=== PATIENT | female | born 1985 | race African-American/Black ===

== ENCOUNTER 2017-09-12 11:26 | Inpatient (IN) | payer OTHER ==
[2017-09-12] MEDS ORDERED: DEXTROSE 5%-LACTATED RINGERS 1,000 ML IV SCH (12:15)
[2017-09-12 12:38] LABS: BASO % 0.6 % (0-2.0); EOS % 1.3 % (0-4.5); HEMATOCRIT 30.2 % (32.4-45.2); HEMOGLOBIN 9.9 GM/dL (10.7-15.3); LYMPH % 22.3 % (8-40); MCH 28.6 pg (25.7-33.7); MCHC 32.8 g/dl (32.0-36.0); MEAN CELL VOLUME 87.4 fl (80-96); MEAN PLT VOLUME 7.7 fl (7.5-11.1); MONO % 7.6 % (3.8-10.2); NEUT % 68.2 % (42.8-82.8); PLATELET COUNT 233 K/MM3 (134-434); RBC 3.45 M/mm3 (3.60-5.2); RDW 13.1 % (11.6-15.6); WHITE BLOOD COUNT 10.1 K/mm3 (4.0-10.0)
[2017-09-12] MEDS ORDERED: AMPICILLIN SODIUM 2 GM VIAL ONE (12:45)
[2017-09-12] MEDS ORDERED: AMPICILLIN - 2 GM in SODIUM CHLORIDE 100 ML IVPB ONE (12:50)
[2017-09-12 12:59] VITALS: BMI 25.8
[2017-09-12 12:59] LABS: INR 0.96 (0.82-1.09); PROTHROMBIN TIME (PATIENT) 10.8 SEC (9.7-13.0)
[2017-09-12 13:02] LABS: ACTIVATED PTT 29.1 SECONDS (26.9-34.4)
[2017-09-12 13:07] LABS: ANION GAP 5 (8-16); BLOOD UREA NITROGEN 9 mg/dL (7-18); CALCIUM 8.3 mg/dL (8.5-10.1); CHLORIDE 109 mmol/L (98-107); CO2 26 mmol/L (21-32); CREATININE 0.5 mg/dL (0.55-1.02); GLUCOSE,RANDOM 75 mg/dL (74-106); POTASSIUM 4.1 mmol/L (3.5-5.1); SODIUM 140 mmol/L (136-145)
[2017-09-12] MEDS ORDERED: FENTANYL/BUPIVACAINE/NS/PF - PCEA - 50 ML DISP.SYRIN EP ONE (13:26)
[2017-09-12] MEDS ORDERED: TUBERCULIN PPD 5 TU/0.1ML SYRINGE (IN PATIENT USE ONLY) ID ONE (13:30)
--- NOTE | 2017-09-12 13:35 | HP ---
Past Medical History - Primary Care Physician PCP:: Anderson Hogue - Admission Chief Complaint: 38 weeks, labor History of Present Illness: 32 yo f edc 09/23/17 , care else where c/o contraction, no rom, no bleeding , cx 5 cm 80 vx -2 mi, fhr cat 1, irregular contraction , no chart available History Source: Patient Limitations to Obtaining History: No Limitations - Past Medical History ...: 4 ...Para: 1 ...Term: 1 ...: 0 ...Spon : 0 ...Induced : 2 ...Multiple Gestation: 0 ...LMP: 12/19/16 ... Weeks Gestation by Dates: 38.1 ...EDC by Dates: 09/25/17 ...EDC by Sono: 09/23/17 Heme/Onc: Yes: Anemia - Past Surgical History Hx Myomectomy: No Hx Transabdominal Cerclage: No - Smoking History Smoking history: Never smoked Have you smoked in the past 12 months: No - Alcohol/Substance Use Hx Alcohol Use: No - Social History Usual Living Arrangement: Yes: With Spouse History of Recent Travel: No Home Medications - Allergies Allergies/Adverse Reactions: Allergies Allergy/AdvReac Type Severity Reaction Status Date / Time No Known Allergies Allergy Verified 09/12/17 13:01 - Home Medications Home Medications: Ambulatory Orders Pnv No.95/Ferrous Fum/Folic AC [ Vitamin Tablet] 1 each PO DAILY Review of Systems - Review of Systems Constitutional: reports: No Symptoms Eyes: reports: No Symptoms HENT: reports: No Symptoms Neck: reports: No Symptoms Cardiovascular: reports: No Symptoms Respiratory: reports: No Symptoms Gastrointestinal: reports: No Symptoms Genitourinary: reports: No Symptoms Breasts: reports: No Symptoms Reported Musculoskeletal: reports: No Symptoms Integumentary: reports: No Symptoms Neurological: reports: No Symptoms Endocrine: reports: No Symptoms Hematology/Lymphatic: reports: No Symptoms Psychiatric: reports: No Symptoms Physical Exam - Maternity Vital Signs: Vital Signs Temperature 97.3 F L 09/12/17 12:30 Pulse Rate 67 09/12/17 12:30 Respiratory Rate 20 09/12/17 12:30 Blood Pressure 131/74 09/12/17 12:30 O2 Sat by Pulse Oximetry (%) - Labs Lab Results: CBC, BMP 09/12/17 12:16 09/12/17 12:16 Hemorrhage Risk Assessment - Risk Factors High Risk Factors: Yes: None Risk Score: 0 Risk Level: Low Risk Problem List - Problems (1) with 38 completed weeks gestation Code(s): Z3A.38 - 38 WEEKS GESTATION OF (2) Labor established Code(s): GRZ8050 - Assessment/Plan admit for vaginal delivery, FHM
[2017-09-12] MEDS ORDERED: ELECTROLYTE-148 SOLN 500 ML IV SCH (13:40)
[2017-09-12] MEDS ORDERED: BUPIVACAINE HCL/PF 0.25% (2.5MG/ML) 10 ML VIAL ONE (13:41)
[2017-09-12] MEDS ORDERED: LIDO 2%/EPI 1:200000 PRESRVFRE (20 ML SDVIAL) ONE (13:41)
[2017-09-12] MEDS ORDERED: NALOXONE HCL 0.4 MG/ML VIAL IVPUSH PRN (14:08)
[2017-09-12] MEDS ORDERED: FENTANYL/BUPIVACAINE/NS/PF - PCEA - 50 ML DISP.SYRIN EP SCH (14:15)
[2017-09-12] MEDS ORDERED: OXYTOCIN 30 UNITS in 0.9% NS 30 UNIT/500 ML INFUS.BAG IVPB ONE (14:27)
[2017-09-12] MEDS ORDERED: ELECTROLYTE-148 SOLN 1,000 ML IV SCH (14:40)
--- NOTE | 2017-09-12 14:54 | PN ---
Progress Note (short form) - Note Progress Note: cx 8 cm, 100 vx 0 arom, light mec, fhr cat 1. irregular contraction Problem List - Problems (1) with 38 completed weeks gestation Code(s): Z3A.38 - 38 WEEKS GESTATION OF (2) Labor established Code(s): HUU4162 -
[2017-09-12] MEDS ORDERED: OXYTOCIN 30 UNITS in 0.9% NS 30 UNIT/500 ML INFUS.BAG IVPB SCH (15:00)
[2017-09-12 15:29] LABS: URINE APPEARANCE CLEAR; URINE BILIRUBIN NEGATIVE (<2.0 mg/dL); URINE COLOR YELLOW; URINE GLUCOSE (UA) NEGATIVE (NEGATIVE); URINE KETONE NEGATIVE (NEGATIVE); URINE LEUK ESTERASE NEGATIVE (NEGATIVE); URINE NITRITE NEGATIVE (NEGATIVE); URINE PROTEIN NEGATIVE (NEGATIVE)
[2017-09-12 16:02] LABS: COCAINE, UR NEGATIVE ng/ml (CUTOFF=300); METHADONE, UR NEGATIVE ng/ml (CUTOFF=300); OPIATES, URI NEGATIVE ng/ml (CUTOFF=300); PHENCYCLIDINE,URINE NEGATIVE ng/ml (CUTOFF=25); URINE AMPHETAMINES NEGATIVE ng/ml (CUTOFF=500); URINE BARBITURATES NEGATIVE ng/ml (CUTOFF=200); URINE BENZODIAZEPINES NEGATIVE ng/ml (CUTOFF=200)
[2017-09-12] MEDS ORDERED: OXYTOCIN 20 UNITS in 0.9% NS 20 UNIT/1,000 ML INFUS.BAG IV ONE (16:39)
[2017-09-12] MEDS ORDERED: BISACODYL 10 MG SUPP.RECT RC PRN (16:55)
[2017-09-12] MEDS ORDERED: WITCH HAZEL 50% (TUCKS) 40 PAD/JAR PAD TP PRN (16:55)
[2017-09-12] MEDS ORDERED: BENZOCAINE 28 GM HEMORRHOIDAL OINTMENT TP PRN (16:55)
[2017-09-12] MEDS ORDERED: IBUPROFEN 600 MG TABLET (FP) PO PRN (16:55)
[2017-09-12] MEDS: AMPICILLIN - 1 GM in SODIUM CHLORIDE 100 ML IVPB SCH ×2 (17:00→22:12)
[2017-09-12] MEDS ORDERED: OXYTOCIN 20 UNITS in 0.9% NS 20 UNIT/1,000 ML INFUS.BAG IV SCH (17:00)
[2017-09-12 17:07] LABS: ALBUMIN 2.9 g/dl (3.4-5.0); ALK PHOS 125 U/L (45-117); ANION GAP 7 (8-16); BILIRUBIN,TOTAL 0.5 mg/dL (0.2-1.0); BLOOD UREA NITROGEN 8 mg/dL (7-18); CALCIUM 7.9 mg/dL (8.5-10.1); CHLORIDE 108 mmol/L (98-107); CO2 25 mmol/L (21-32); CREATININE 0.5 mg/dL (0.55-1.02); GLUCOSE,RANDOM 67 mg/dL (74-106); POTASSIUM 3.9 mmol/L (3.5-5.1); SGOT/AST 14 U/L (15-37); SGPT/ALT 15 U/L (12-78); SODIUM 140 mmol/L (136-145); TOT PROT 6.6 g/dl (6.4-8.2)
[2017-09-12] MEDS ORDERED: ACETAMINOPHEN 325 MG TABLET (FP) PO PRN (17:11)
[2017-09-12] MEDS ORDERED: BENZOCAINE 20% 57 GM BOTTLE TP PRN (17:11)
[2017-09-12] MEDS ORDERED: METHYLERGONOVINE MALEATE 0.2 MG/1 ML AMP IM PRN (17:15)
[2017-09-12 17:29] LABS: VENOUS PC02 43.4 mmHg (38-52); VENOUS PH 7.35 (7.32-7.42); VENOUS PO2 40.9 mmHg (28-48)
[2017-09-13] MEDS: AMPICILLIN - 1 GM in SODIUM CHLORIDE 100 ML IVPB SCH (06:50)
--- NOTE | 2017-09-13 06:52 | PN ---
Post Progress Note - Subjective Subjective: no complains Post Day: 1 Type of Delivery: Vital Signs: Vital Signs Temperature 99.0 F 09/13/17 00:00 Pulse Rate 89 09/13/17 00:00 Respiratory Rate 20 09/13/17 00:00 Blood Pressure 115/78 09/13/17 00:00 O2 Sat by Pulse Oximetry (%) 100 09/12/17 17:45 Breast Exam: Yes: Soft, Other (bottle feeding ). No: Engorged Uterus: Yes: Fundus Firm, Fundus below umbilicus, Non-tender Lochia, amount: Moderate Extremities: Yes: Calves non-tender Perineum: Yes: Intact Activity: Ambulating - Labs Labs: CBC WBC 10.1 K/mm3 (4.0-10.0) H 09/12/17 12:16 RBC 3.45 M/mm3 (3.60-5.2) L 09/12/17 12:16 Hgb 9.9 GM/dL (10.7-15.3) L 09/12/17 12:16 Hct 30.2 % (32.4-45.2) L 09/12/17 12:16 MCV 87.4 fl (80-96) 09/12/17 12:16 MCH 28.6 pg (25.7-33.7) 09/12/17 12:16 MCHC 32.8 g/dl (32.0-36.0) 09/12/17 12:16 RDW 13.1 % (11.6-15.6) 09/12/17 12:16 Plt Count 233 K/MM3 (134-434) 09/12/17 12:16 MPV 7.7 fl (7.5-11.1) 09/12/17 12:16 Neutrophils % 68.2 % (42.8-82.8) 09/12/17 12:16 Lymphocytes % 22.3 % (8-40) 09/12/17 12:16 Monocytes % 7.6 % (3.8-10.2) 09/12/17 12:16 Eosinophils % 1.3 % (0-4.5) 09/12/17 12:16 Basophils % 0.6 % (0-2.0) 09/12/17 12:16 Nucleated RBC % 0 % (0-0) 09/12/17 12:16 Problem List - Problems (1) Encounter for routine follow-up Code(s): Z39.2 - ENCOUNTER FOR ROUTINE FOLLOW-UP (2) Normal vaginal delivery Code(s): O80 - ENCOUNTER FOR FULL-TERM UNCOMPLICATED DELIVERY Assessment/Plan anemia Plan pp cbc today . discharge tomorrow.
[2017-09-13] MEDS: FERROUS SO4 325 MG TABLET (FP) PO SCH ×2 (08:54→18:39)
[2017-09-13 09:37] LABS: BASO % 0.2 % (0-2.0); EOS % 1.6 % (0-4.5); HEMATOCRIT 25.5 % (32.4-45.2); HEMOGLOBIN 8.4 GM/dL (10.7-15.3); LYMPH % 17.2 % (8-40); MCH 28.4 pg (25.7-33.7); MCHC 32.7 g/dl (32.0-36.0); MEAN CELL VOLUME 86.7 fl (80-96); MEAN PLT VOLUME 7.8 fl (7.5-11.1); MONO % 6.4 % (3.8-10.2); NEUT % 74.6 % (42.8-82.8); PLATELET COUNT 199 K/MM3 (134-434); RBC 2.95 M/mm3 (3.60-5.2); RDW 12.8 % (11.6-15.6); WHITE BLOOD COUNT 10.5 K/mm3 (4.0-10.0)
[2017-09-13] MEDS: PRENATAL VITAMINS W/ FOLIC ACID TABLET (FP) PO SCH (09:39)
[2017-09-13 12:51] LABS: RPR NONREACTIVE (NONREACTIVE)
[2017-09-13] MEDS ORDERED: SENNOSIDES/DOCUSATE COMBO (SENNA PLUS) TABLET (UD) PO PRN (22:00)
[2017-09-14] MEDS: FERROUS SO4 325 MG TABLET (FP) PO SCH (08:20)
--- NOTE | 2017-09-14 08:44 | DS ---
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: Vital Signs Temperature 98.9 F 09/13/17 21:00 Pulse Rate 66 09/13/17 21:00 Respiratory Rate 20 09/13/17 21:00 Blood Pressure 128/79 09/13/17 21:00 O2 Sat by Pulse Oximetry (%) 100 09/12/17 17:45 Constitutional: Yes: Well Nourished Eyes: Yes: Conjunctiva Clear HENT: Yes: Atraumatic Neck: Yes: Supple Cardiovascular: Yes: Regular Rate and Rhythm Respiratory: Yes: Regular Gastrointestinal: Yes: Normal Bowel Sounds External Genitalia: Yes: Normal Vaginal Exam: Yes: Normal Cervix: Yes: Normal Uterus: Yes: Firm ....Post : Yes: Uterus firm Breast(s): Yes: WNL Musculoskeletal: Yes: WNL Extremities: Yes: WNL Neurological: Yes: Alert, Oriented ...Motor Strength: WNL Psychiatric: Yes: Alert, Oriented Labs: CBC, BMP 09/13/17 09:15 09/12/17 15:50 Delivery - Delivery Type of Anesthesia: Epidural Episiotomy/Laceration: None EBL (cc): 300 Delivery, Single - Stages of Labor Date 1st Stage Initiatied: 09/12/17 Time 1st Stage Initiated: 13:00 Date 2nd Stage Initiated: 09/12/17 Time 2nd Stage Initiated: 16:15 Date of Delivery: 09/12/17 Time of Delivery: 16:46 Time Placenta Delivered: 16:48 - 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 Gender: Female Weight: 5 lb 5 oz Position: Right, OA Total Hours ROM (Hrs/Mins): 1hr/58mins - 1 Minute Total Score: 9 5 Minutes Total Score: 9 - [place] Feeding Plan Initial Plan: Elected not to breastfeed exclusively throughout hospitalization Discharge Summary Reason For Visit: LABOR Current Active Problems Encounter for routine follow-up (Acute) Labor established (Acute) Normal vaginal delivery (Acute) with 38 completed weeks gestation (Acute) Procedures: Principal: Normal spontaneous vaginal delivery Hospital Course: Routine care Condition: Good - Instructions Diet, Activity, Other Instructions: Regular diet No douching, no sexual intercourse x 6 weeks F/U in clinic in 6 weeks Disposition: HOME - Home Medications Comprehensive Discharge Medication List: Ambulatory Orders Pnv No.95/Ferrous Fum/Folic AC [ Vitamin Tablet] 1 each PO DAILY
[2017-09-14 10:16] LABS: RUBELLA IgG ANTIBODY 1.83 index (Immune >0.99)
[2017-09-14] MEDS: PRENATAL VITAMINS W/ FOLIC ACID TABLET (FP) PO SCH (10:19)
[2017-09-14 11:56] VITALS: BP 112/72; PULSE 62; TEMP 98.4
[2017-09-15 00:16] LABS: HBsAG SCREEN Negative (Negative)
--- NOTE | 2017-09-19 12:57 | PATH ---
Surgical Pathology Report Patient Name: CARLOS HOBBS Med. Rec. 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 Specimen(s) Received PLACENTA Clinical History , 38.3 weeks, , odor noted at delivery Kidney infection 2012 05/2008, IAB x2 Final Diagnosis PLACENTA, DELIVERY: 319 g THIRD TRIMESTER PLACENTA WITH TRIVASCULAR UMBILICAL CORD AND PLACENTAL MEMBRANES WITH MECONIUM LADEN MACROPHAGES. Electronically Signed Anette Taveras M.D. Gross Description The specimen is received fresh labeled placenta and is a 319 gram, 16.0 x 15.0 x 2.5 cm. placenta with attached membranes and umbilical cord. The attached membranes are vasquez, translucent with focal opacities and insert marginally. The umbilical cord measures 15 cm. in length and averages 1.1 cm. in diameter. The cord inserts eccentrically, 4.5 cm. to the nearest margin. No true knots or strictures are identified. Cut surface of the umbilical cord reveals 3 vessels. The surface is baez green, meconium stained with minimal fibrin deposition and appropriate caliber vessels. The maternal surface is red-brown with focal defects. Sectioning reveals red-brown, spongy parenchyma. No lesions are identified. Chairman And Ceo sections are submitted in three cassettes as follows: 1- membrane rolls and umbilical cord; 2-3- full thickness sections of placenta. /09/15/2017 [facility]09/15/2017
== END 2017-09-14 12:32 | disposition home or self-care (01) | DRG 560 ==
LOC: JDEL 11:26 → JLDR 12:00 → J3W 17:58
PROVIDERS: ADMIT Obstetrics & Gynecology; ATTEND Obstetrics & Gynecology
PROC: 10E0XZZ Delivery of Products of Conception, External Approach (ICD-10-PCS; principal; 2017-09-12)
DX: O99.02 Anemia complicating childbirth (principal); D64.9 Anemia, unspecified; Z3A.38 38 weeks gestation of pregnancy; Z37.0 Single live birth
CPT/HCPCS: 36415; 59409; 80048; 80053; 80307; 81003; 82803; 85025; 85610; 85730; 86593; 86762; 86850; 86900; 86901; 87340; 87389; 88307-TC